=== PATIENT | male | born 1965 | race Caucasian/White ===

== ENCOUNTER 2021-09-29 07:56 | Emergency (ER) | payer MEDICARE ==
[~2021-09-29 07:56] MED LIST: NEURONTIN300 MG PO
[2021-09-29] MEDS ORDERED: NORFLEX 100 MG100 MG PO (12:20)
[2021-09-29] MEDS ORDERED: Voltaren Gel 1 % TOP (12:20)
[2021-09-29] MEDS ORDERED: MEDROL DOSEPAK 24 MG PO (12:20)
== END 2021-09-29 12:27 | disposition home or self-care (01) ==
LOC: ER1 07:56
DX: S16.1XXA Strain of muscle, fascia and tendon at neck level, initial encounter (principal); R21 Rash and other nonspecific skin eruption; E78.5 Hyperlipidemia, unspecified; I10 Essential (primary) hypertension; F17.210 Nicotine dependence, cigarettes, uncomplicated; X58.XXXA Exposure to other specified factors, initial encounter
CPT/HCPCS: 72040; 99283